=== PATIENT | female | born 1930 | race Caucasian/White ===

== ENCOUNTER 2016-07-28 18:24 | Inpatient (IN) | payer MEDICARE, BC ==
[~2016-07-28] VITALS: Ht 162.6 cm; Wt 69.4 kg
[~2016-07-28 18:24] MED LIST: ASPIRIN 32325 MG/TAB PO; ASPIRIN 81M81 MG/TA2 PO; ATIVAN 0.50.5 MG/TAB PO; CALCARB 600600 MG PO; DOXYCYCLINE 10100 MG PO; ENABLEX 7.5MG7.5 MG PO; GENTAMICIN180 MG/502 NS; MOBIC15 MG PO; OMEGA 31000 MG PO; PLENDIL 2.5MG2.5 MG PO; PREMARIN VAG42.5 GM VG; PRILOSEC 20MG20 MG PO; PRINZIDE 12.5 M1 TA1 PO; TOPROL XL 50MG50 MG PO; TYLENOL 325MG325 MG PO
[2016-07-28] MEDS ORDERED: PROBIOTIC FORMU1 CAP PO (18:42)
[2016-07-28] MEDS ORDERED: PRINIVIL40 MG PO (19:20)
[2016-07-28] MEDS ORDERED: LEXAPRO 5MG5 MG PO (19:21)
[2016-07-28 20:36] LABS: PH 7 (5-8); SQUAMOUS EPITHELIAL None Seen /hpf; URINE APPEARANCE Clear; URINE BACTERIA None Seen /hpf; URINE BILIRUBIN Negative (NEGATIVE); URINE BLOOD Negative (NEGATIVE); URINE COLOR Yellow; URINE GLUCOSE Negative (NEGATIVE); URINE KETONE Negative (NEGATIVE); URINE RBC 0-2 /hpf; URINE UROBILINOGEN Negative (NEGATIVE); URINE WBC 0-2 /hpf
[2016-07-28 20:38] LABS: BASO % 0.3 % (0.0-2.0); EOS % 0.3 % (0-4.0); GRAN # 7.8 (1.4-6.5); GRAN % 78.8 % (42.2-75.2); HEMOGLOBIN 12.9 g/dl (12.5-16.0); LYMPH # 1.2 (1.2-3.4); LYMPH % 12.6 % (20.0-51.0); MEAN CELL VOLUME 90 fl (80.0-100.0); MEAN CORPUSCULAR HEMOGLOBIN 30 pg (27.0-31.0); MEAN CORPUSCULAR HGB CONC 33 g/dl (33.0-37.0); MEAN PLATELET VOLUME 10.4 fl (7.4-10.4); MONO # 0.7 (0.1-0.6); MONO % 7.2 % (1.7-9.3); PLATELET COUNT 162 K/mm3 (130-400); RED BLOOD COUNT 4.33 M/mm3 (4.10-5.30); REDCELL DISTRIBUTION WIDTH-CV 14.4 % (11.5-14.5); WHITE BLOOD COUNT 9.9 K/mm3 (4.8-10.8)
[2016-07-28 20:41] LABS: PROTHROMBIN TIME 11.5 SECONDS (9.7-12.8)
[2016-07-28 20:51] LABS: ADJUSTED CALCIUM 9.1 mg/dL (8.4-10.2); ALANINE AMINOTRANSFERASE 37 U/L (9-52); ALBUMIN 3.6 gm/dL (3.5-5.0); ALKALINE PHOSPHATASE 57 U/L (50-136); ANION GAP 13 mmol/L (7-16); BLOOD UREA NITROGEN 29 mg/dL (7-17); CALCIUM 8.8 mg/dL (8.4-10.2); CARBON DIOXIDE 25 mmol/L (22-30); CHLORIDE 99 mmol/L (98-107); CREATININE, serum 0.94 mg/dL (0.52-1.25); GLUCOSE 121 mg/dL (74-106); POTASSIUM 3.7 mmol/L (3.4-5.0); SODIUM 137 mmol/L (137-145); TOTAL PROTEIN 6.1 gm/dL (6.4-8.2)
[2016-07-29] VITALS (8 sets, daily range): BP systolic 122–159; BP diastolic 42–80; PULSE 66–99; TEMP 98–98.5
[2016-07-29 00:47] LABS: TROPONIN-I < 0.012 ng/mL (0.000-0.034)
[2016-07-29 10:18] LABS: HEMATOCRIT 38.7 % (37.0-47.0); HEMOGLOBIN 12.7 g/dl (12.5-16.0)
[2016-07-30 06:14] VITALS: BP 173/67; PULSE 88; TEMP 97.7
[2016-07-30 07:45] LABS: HEMATOCRIT 38.5 % (37.0-47.0); HEMOGLOBIN 12.5 g/dl (12.5-16.0)
[2016-07-30 07:51] LABS: CALCIUM 8.9 mg/dL (8.4-10.2); CREATININE, serum 0.86 mg/dL (0.52-1.25); POTASSIUM 4.1 mmol/L (3.4-5.0)
[2016-07-30 10:00] VITALS: BP 152/54; PULSE 81; TEMP 97.1
[2016-07-30 12:26] VITALS: BP 151/48; PULSE 77; TEMP 98.1
[2016-07-30] MEDS ORDERED: ASPI325T6 PO (14:54)
[2016-07-30] MEDS ORDERED: VITAMINC500CH PO (14:55)
[2016-07-30] MEDS ORDERED: OYSCO 500500 M1 PO (14:55)
[2016-07-30] MEDS ORDERED: NORCO 325 MG-51 TAB PO (14:56)
[2016-07-30] MEDS ORDERED: DUO-KAPS1 CAP PO (14:56)
[2016-07-30 17:15] VITALS: BP 153/57; PULSE 85; TEMP 99.2
[2016-07-30 21:53] VITALS: BP 176/59; PULSE 80; TEMP 98.2
[2016-07-31 01:31] VITALS: BP 143/46; PULSE 89; TEMP 98.1
[2016-07-31 06:05] VITALS: BP 184/74; PULSE 80; TEMP 97.8
[2016-07-31 07:30] LABS: HEMATOCRIT 34.8 % (37.0-47.0); HEMOGLOBIN 11.5 g/dl (12.5-16.0)
[2016-07-31 08:00] VITALS: BP 108/51; PULSE 94; TEMP 98.7
== END 2016-07-31 11:41 | disposition swing bed (61) | DRG 470 ==
LOC: COL.ER 18:24 → SURG 21:02
PROVIDERS: Emergency Medicine; Nurse Anesthetist, Certified Registered; Orthopaedic Surgery
PROC: 0SRR0J9 Replacement of Right Hip Joint, Femoral Surface with Synthetic Substitute, Cemented, Open Approach (ICD-10-PCS; principal; 2016-07-28)
DX: S72.011A Unspecified intracapsular fracture of right femur, initial encounter for closed fracture (principal); I10 Essential (primary) hypertension; I48.0 Paroxysmal atrial fibrillation; S60.221A Contusion of right hand, initial encounter; K21.9 Gastro-esophageal reflux disease without esophagitis; F32.9 Major depressive disorder, single episode, unspecified; F41.9 Anxiety disorder, unspecified; M81.0 Age-related osteoporosis without current pathological fracture; S61.512A Laceration without foreign body of left wrist, initial encounter; W01.0XXA Fall on same level from slipping, tripping and stumbling without subsequent striking against object, initial encounter; Z79.82 Long term (current) use of aspirin; Z85.3 Personal history of malignant neoplasm of breast
CPT/HCPCS: 99222-AI; 99232-AI; 99239; A9284; C1776; J0360; J0690; J1100; J2250; J2270; J2370; J2405; J2704; J3010; J7030